=== PATIENT | female | born 1985 | race Caucasian/White ===

== ENCOUNTER 2019-09-23 16:23 | Emergency (ER) | payer OTHER ==
[~2019-09-23] VITALS: Ht 167.6 cm; Wt 68.2 kg
[~2019-09-23 16:23] MED LIST: LORTAB 5/500 501 TAB PO; SINGULAIR 110 MG/TAB PO
[2019-09-23 16:37] VITALS: TEMP 98.8
[2019-09-23 18:25] VITALS: BP 121/68; PULSE 82
== END 2019-09-23 18:25 | disposition home or self-care (01) ==
LOC: COL.ER 16:23
DX: S01.01XA Laceration without foreign body of scalp, initial encounter (principal); F07.81 Postconcussional syndrome; Z23 Encounter for immunization; W50.1XXA Accidental kick by another person, initial encounter; Y93.75 Activity, martial arts
CPT/HCPCS: J1885